=== PATIENT | male | born 1950 | race Caucasian/White ===

== ENCOUNTER → 2018-06-25 07:34 | Outpatient (CLI) | payer MEDICARE, SELFPAY ==
--- NOTE | 2018-06-25 07:38 | DI.MRI.S_ITS ---
PROCEDURE: MR KNEE RT WO CON INDICATIONS: Strain of R knee TECHNIQUE: Noncontrast sagittal PD fast spin echo and T2 fast spin echo with fat saturation, sagittal 3-D FLASH with fat saturation; coronal T1 spin echo and PD fast spin echo with fat saturation, and axial PD fast spin echo with fat saturation through the knee. COMPARISON: None. FINDINGS: Image quality: Excellent. Menisci: There is a complex tear of the medial meniscus including a horizontally oriented longitudinal tear in the posterior horn involving the inferior articular surface with intrasubstance extension to the junction with the posterior meniscal root ligament. There is also extension into the body which demonstrates irregular tearing along the free edge and inferior articular surface. No associated parameniscal cyst. The lateral meniscus also demonstrates a horizontally oriented longitudinal tear involving the inferior articular surface within the posterior horn with extension into the body where there is involvement of the superior articular surface and free edge. There is also a component extending into the anterior horn involving the superior articular surface. Cruciate ligaments: The anterior and posterior cruciate ligaments appear intact. Medial structures: The medial collateral ligament appears intact. The semimembranosus tendon insertions and meniscocapsular junction appear intact. Visualized portions of the pes anserinus tendons appear intact without associated bursal fluid collections. Lateral structures: The lateral collateral ligament, long and short heads of the biceps femoris tendon appear intact. The popliteus tendon appears intact. Iliotibial band appears normal. Anterior structures: The quadriceps and patellar tendons appear intact. Patellar alignment is normal. No femoral trochlear dysplasia or ventral trochlear prominence. There is curvilinear scarring within the infrapatellar fat pad suggestive of an infrapatellar plica. Bones and cartilage: No bone marrow contusions or fractures. There is minimal osteophytosis. Mild cartilage thinning is present in the medial compartment with superficial chondral fraying. In the lateral compartment, there is mild superficial chondral irregularity. In the patellofemoral compartment, there is mild superficial chondral irregularity. Joint space: There is physiologic knee joint fluid. There is a moderate-sized septated Mata's cyst. IMPRESSION: 1. Tearing of the medial and lateral menisci redemonstrated, slightly progressed compared to the prior study. There is interval resolution of the medial parameniscal cyst seen on the prior study. 2. Mild cartilage degeneration. 3. Moderate sized septated Mata cyst. 4. Scarring within the infrapatellar fat pad suggestive of an infrapatellar plica. Dictated by: Royal Kumar M.D. on 06/25/2018 at 14:00 Approved by: Royal Kumar M.D. on 06/25/2018 at 14:11
== END ==
PROVIDERS: Family Provider Family Medicine; PCP Family Medicine; Visit Provider Family Medicine
DX: S83.231A Complex tear of medial meniscus, current injury, right knee, initial encounter (principal); S83.281A Other tear of lateral meniscus, current injury, right knee, initial encounter; M71.21 Synovial cyst of popliteal space [Baker], right knee; L30.9 Dermatitis, unspecified
CPT/HCPCS: 73721

== ENCOUNTER → 2019-02-15 08:47 | Outpatient (CLI) | payer MEDICARE, SELFPAY ==
[2019-02-15 09:10] LABS: Add Manual Diff / Slide Review NO; Basophils Absolute Auto 0 /uL (0-100); Basophils Percent Auto 0.7 % (0-2); Eosinophils Absolute Auto 100 /uL (0-450); Eosinophils Percent Auto 1.5 % (2-4); Hematocrit 43.8 % (41-53); Hemoglobin 15.3 g/dL (13.5-17.5); Lymphocytes Absolute Auto 1500 /uL (1100-4500); Lymphocytes Percent Auto 28.1 % (25-40); Mean Corpuscular HGB Conc 34.8 % (30-36); Mean Corpuscular Hemoglobin 34.2 PG (26-34); Mean Corpuscular Volume 98.1 fL (80-100); Monocytes Absolute Auto 400 /uL (0-900); Monocytes Percent Auto 7.2 % (3-14); Neutrophils Absolute Auto 3300 /uL (1500-7000); Neutrophils Percent Auto 62.5 % (50-75); Platelet Count 153 X10^3/uL (150-400); Red Blood Cell Count 4.47 X10^6/uL (4.5-5.9); Red Cell Distribution Width 13.1 % (11.6-14.8); White Blood Cell Count 5.3 X10^3/uL (4.5-11.0)
[2019-02-15 09:29] LABS: Alanine Aminotransferase 44 IU/L (21-72); Albumin 4.6 g/dL (3.5-5.0); Albumin Globulin Ratio 1.4 (1.0-2.8); Alkaline Phosphatase 80 U/L (38-126); Aspartate Aminotransferase 58 IU/L (17-59); BUN Creatinine Ratio 23.3 (6-22); Bilirubin Total 0.8 mg/dL (0.2-1.3); Blood Urea Nitrogen 14 mg/dL (9-20); Calcium 9.5 mg/dL (8.4-10.2); Carbon Dioxide 25 mmol/L (22-32); Chloride 106 mmol/L (98-107); Cholesterol 182 mg/dL (140-199); Estimated Glomerular Filt Rate > 60.0 mL/min (>60); Globulin 3.4 g/dL (1.7-4.1); Glucose 135 mg/dL (80-110); HDL Cholesterol 36 mg/dL (40-60); HEMOLYSIS < 15 (0-50); LDL Cholesterol Calculated 109 mg/dL (<100); Phenytoin / Dilantin 6.9 ug/mL (10-20); Potassium 4.3 mmol/L (3.4-5.1); Sodium 144 mmol/L (137-145); Triglycerides 186 mg/dL (35-150)
[2019-02-15 09:39] LABS: Creatinine Urine Random 116.1 mg/dL
[2019-02-15 09:52] LABS: Microalbumi Creatinin Ratio Ur 27.5 ug/mg CR (<30); Microalbumin Urine Random 3.2 mg/dL (0-1.6)
[2019-02-15 09:57] LABS: Prostate Specific Antigen Scrn 0.228 ng/mL (0.1-4.0)
== END ==
PROVIDERS: PCP Family Medicine; Visit Provider Family Medicine
DX: E78.5 Hyperlipidemia, unspecified (principal); R56.9 Unspecified convulsions; Z51.81 Encounter for therapeutic drug level monitoring; Z79.899 Other long term (current) drug therapy; Z13.1 Encounter for screening for diabetes mellitus; Z12.5 Encounter for screening for malignant neoplasm of prostate
CPT/HCPCS: 36415; 80053; 80061; 80185; 82043; 82570; 84443; 85025; G0103

== ENCOUNTER → 2019-04-19 08:16 | Outpatient (CLI) | payer MEDICARE, SELFPAY ==
[2019-04-19 09:01] LABS: Hemoglobin A1C% w Est Avg Glu 5.8 % (4.0-6.0)
[2019-04-19 09:25] LABS: Glucose 136 mg/dL (80-110)
== END ==
PROVIDERS: PCP Family Medicine; Visit Provider Family Medicine
DX: E11.9 Type 2 diabetes mellitus without complications (principal)
CPT/HCPCS: 36415; 82947; 83036

== ENCOUNTER → 2020-06-01 08:42 | Outpatient (CLI) | payer MEDICARE, SELFPAY ==
[2020-06-01 10:07] LABS: Alanine Aminotransferase 51 IU/L (<50); Albumin 4.6 g/dL (3.5-5.0); Albumin Globulin Ratio 1.3 (1.0-2.8); Alkaline Phosphatase 77 U/L (38-126); Aspartate Aminotransferase 60 IU/L (17-59); BUN Creatinine Ratio 32.7 (6-22); Bilirubin Total 0.7 mg/dL (0.2-1.3); Blood Urea Nitrogen 18 mg/dL (9-20); Calcium 9.8 mg/dL (8.4-10.2); Carbon Dioxide 26 mmol/L (22-32); Chloride 108 mmol/L (98-107); Cholesterol 193 mg/dL (140-199); Estimated Glomerular Filt Rate > 60.0 mL/min (>60); Globulin 3.6 g/dL (1.7-4.1); Glucose 130 mg/dL (80-110); HDL Cholesterol 37 mg/dL (40-60); HEMOLYSIS < 15 (0-50); LDL Cholesterol Calculated 110 mg/dL (<100); Phenytoin / Dilantin 17.5 ug/mL (10-20); Potassium 4.4 mmol/L (3.4-5.1); Sodium 142 mmol/L (137-145); Total Protein 8.2 g/dL (6.3-8.2); Triglycerides 232 mg/dL (35-150)
[2020-06-01 10:30] LABS: Prostate Specific Antigen Scrn 0.188 ng/mL (0.1-4.0)
[2020-06-01 10:32] LABS: Hemoglobin A1C% w Est Avg Glu 6.3 % (4.0-6.0)
== END ==
PROVIDERS: PCP Family Medicine; Referring Provider Family Medicine; Visit Provider Family Medicine
DX: R56.9 Unspecified convulsions (principal); E11.9 Type 2 diabetes mellitus without complications; Z12.5 Encounter for screening for malignant neoplasm of prostate; Z13.220 Encounter for screening for lipoid disorders; Z12.11 Encounter for screening for malignant neoplasm of colon
CPT/HCPCS: 80053; 80061; 80185; 83036; G0103

== ENCOUNTER → 2020-10-01 08:09 | Outpatient (CLI) | payer MEDICARE, SELFPAY ==
[2020-10-01 09:10] LABS: Alanine Aminotransferase 38 IU/L (<50); Albumin 4.3 g/dL (3.5-5.0); Albumin Globulin Ratio 1.3 (1.0-2.8); Alkaline Phosphatase 86 U/L (38-126); Aspartate Aminotransferase 46 IU/L (17-59); BUN Creatinine Ratio 28.3 (6-22); Bilirubin Total 0.7 mg/dL (0.2-1.3); Blood Urea Nitrogen 17 mg/dL (9-20); Calcium 9.8 mg/dL (8.4-10.2); Carbon Dioxide 28 mmol/L (22-32); Chloride 103 mmol/L (98-107); Estimated Glomerular Filt Rate > 60.0 mL/min (>60); Globulin 3.3 g/dL (1.7-4.1); Glucose 113 mg/dL (80-110); HEMOLYSIS < 15 (0-50); Potassium 4.3 mmol/L (3.4-5.1); Sodium 141 mmol/L (137-145); Total Protein 7.6 g/dL (6.3-8.2)
== END ==
PROVIDERS: PCP Family Medicine; Referring Provider Family Medicine; Visit Provider Family Medicine
DX: E11.9 Type 2 diabetes mellitus without complications (principal)
CPT/HCPCS: 36415; 80053; 83036

== ENCOUNTER → 2020-11-09 09:24 | Outpatient (CLI) | payer MEDICARE, SELFPAY ==
[2020-11-09 10:40] LABS: COVID19 -Nasal RAPID Negative (Negative)
== END ==
PROVIDERS: PCP Family Medicine; Visit Provider Surgery
DX: Z20.822 Contact with and (suspected) exposure to COVID-19 (principal)
CPT/HCPCS: 87635; C9803

== ENCOUNTER 2020-11-10 07:52 | Day surgery (SDC) | payer MEDICARE, SELFPAY ==
--- NOTE | 2020-11-10 | PATH_ITS ---
[facility] Accession Number: [id number] . 01 Material submitted: . PART A: colon - ASCENDING COLON POLYP PART B: rectum - RECTAL POLYP . 01 Clinical history: . SCREENING COLONOSCOPY . 02 Diagnosis: A. Ascending Colon, Polyp, Biopsy: Tubular adenoma. . B. Rectum, Polyp, Biopsy: Hyperplastic polyp. MRV 11/12/2020 1455 Local . 02 Electronically signed: . Ellie Dunn MD, Pathologist NPI- [id number] . 01 Gross description: . Part A: ASCENDING COLON POLYP: Received in formalin is 1 fragment(s) of guevara, soft tissue measuring 0.3 x 0.3 x 0.3 cm submitted entirely in 1 cassette(s) Part B: RECTAL POLYP: Received in formalin is 1 fragment(s) of guevara, soft tissue measuring 0.3 x 0.3 x 0.3 cm submitted entirely in 1 cassette(s) /JENN 11/11/2020 0524 Local . 02 Pathologist provided ICD-10: D12.2 . 02 CPT . 835431, [id number] Performed at: 01 [facility] Cyt[facility] [address], [place] [id number] MD Royal Shepherd MD Phone: [phone] [facility]formed at: 02 [facility] [address] [place], [place] [id number] MD Ellie Dunn MD Phone: [phone]
[2020-11-10 08:29] VITALS: BP 123/75; PULSE 60; RESP 14; TEMP 36.3; O2SAT 98; BMI 24.4
[2020-11-10] MEDS: LACTATED RINGERS 1,000 ML 100 ML IV (08:36)
--- NOTE | 2020-11-10 08:46 | PM.HP.1 ---
History of Present Illness History of Present Illness Date Patient Seen: 11/10/20 Time Patient Seen: 08:46 Chief complaint: SCREENING COLONOSCOPY Narrative: colon cancer screening this is likely his second scope. Doesn't recall having polyps. No symptoms now and no family history for colon cancer Patient History Medical History Family history of colon cancer History of right shoulder fracture Hx of fracture of leg Hyperlipemia Hypertriglyceridemia Osteoarthritis Rosacea Seizures Sleep apnea Wart (~02/2015) Well adult exam Surgical History Hx of colonoscopy with polypectomy (10/2010) Status post appendectomy Status post knee surgery Status post laparoscopic cholecystectomy Family & Social History Family History Father High cholesterol Mother Diabetes mellitus Sister Diabetes mellitus Colon cancer Social History: household members family Tobacco & Substance use: Smoking Status Never smoker alcohol intake never Substance Use Type does not use Meds Home Medications and Allergies Home Medications Medication Instructions Recorded Confirmed Type cetirizine 10 mg capsule 10 mg PO DAILY #30 cap 09/05/18 11/10/20 Rx fluticasone propionate 50 1 spray NASAL BID #18.2 gram 09/05/18 11/10/20 Rx mcg/actuation nasal spray,suspension metronidazole 1 % topical gel with 1 applictn TOP BID #55 gram 01/01/20 11/10/20 Rx pump triamcinolone acetonide 0.1 % 1 applictn TOPICAL Q HS PRN #30 01/01/20 11/10/20 Rx topical cream gram phenytoin sodium extended 100 mg See Rx Instructions .ROUTE 09/30/20 11/10/20 Rx capsule .COMPLEX #450 cap diclofenac sodium 3 % topical gel 1 applic TOPICAL BID #100 g 10/12/20 11/10/20 Rx Allergies Allergy/AdvReac Type Severity Reaction Status Date / Time povidone-iodine Allergy Unknown SWELLING/RE Verified 11/10/20 08:16 [POVIDONE-IODINE] DNESS Exam Vital Signs (past 8 hours): - 11/10/20 08:29 Temperature 97.3 F L Pulse Rate 60 Respiratory Rate 14 Blood Pressure 123/75 Pulse Oximetry 98 Oxygen Delivery Method Room Air Const General: cooperative and healthy appearing HENMT Head: normal to inspection Eyes Sclera: sclerae normal Neck Neck: trachea midline Chest Chest: normal inspection of the chest Resp Effort & Inspection: normal respiratory effort and able to speak in complete sentences Auscultation: clear to auscultation bilaterally Cardio Rate: regular rate Rhythm: regular rhythm GI Inspection: normal to inspection Palpation: soft Skin General: no rashes or lesions noted Neuro General: patient alert, patient awake and patient oriented x3 Extrem General: normal to inspection and full ROM Psych Appearance: grossly normal Thought Content: normal Judgment: judgment good Assessment & Plan Assessment & Plan narrative: colon cancer screening with colonoscopy using moderated sedation COVID-19 COVID-19 status: Negative Time Spent With Patient Time with patient: less than 15 minutes
[2020-11-10] MEDS: MIDAZOLAM 5 MG/5 ML VIAL IV (09:07)
[2020-11-10] MEDS: fentaNYL 250 MCG/5 ML INJ IV (09:08)
--- NOTE | 2020-11-10 09:21 | PM.OP.ENDO ---
Operative Date/Time/Diagnoses Date of procedure: 11/10/20 Time of procedure: 09:01 Pre-op diagnosis: screening colonoscopy Post-op diagnosis: same Procedure & Clinicians Study performed: colonoscopy with cold forcep polypectomy Same procedure as scheduled: Yes Indications: colon cancer screening Surgeon: Deja Klein Procedure Notes SCOAP/Timeout: done Procedure in detail: Preop diagnosis: Family history of colon cancer Postop diagnosis: Same Operative procedure: Colonoscopy with cold forceps polypectomy x2 Anesthetic: Moderate sedation with 125 mcg of fentanyl 6 mg of Versed. Of note, we had IV infiltration on the 1st 100 mcg of fentanyl and 2 of Versed. Surgeon: Yolanda Klein MD Findings: A short segment of sigmoid colon was scant large diverticuli. 3 mm polyps located in the ascending colon and the rectum both taken with cold forceps. Bowel prep excellent Procedure: Patient placed in lateral position. Rectal exam is performed showing normal tone no masses. Colonoscope inserted into the rectum and advanced to the ileocecal valve with minimal difficulty. Insufflation and extraction of the scope and the above findings. Retroflex was included in the rectum. Impression: Should be on a 5 year recall regardless of the pathology. Sister revealed on the follow-up phone call that he has another sibling (sister) who had colon cancer. Scope withdrawal time: 7 Sedation minutes: 19 Findings: diverticulosis and polyp Complications: none Impression: acsending 3mm polyp and rectal polyp 3mm. Both taken with cold forcep. scant but large diverticula in short segment of sigmoid colon. She reports she had polyps and that a sibling had colon cancer. Post-procedure Recommendations: Colonscopy in 5 years Plan for aftercare: home Follow up: as needed Disposition: PACU
[2020-11-10 09:27] VITALS: BP 102/56; PULSE 64; RESP 19; TEMP 36.5; O2SAT 93
[2020-11-10 09:32] VITALS: BP 94/58; PULSE 63; RESP 19; O2SAT 93
[2020-11-10 09:36] VITALS: BP 106/63; PULSE 63; RESP 18; TEMP 36.4; O2SAT 93
[2020-11-10 09:42] VITALS: BP 94/59; PULSE 61; RESP 19; TEMP 36.5; O2SAT 94
[2020-11-10 10:13] VITALS: BP 104/68; PULSE 57; RESP 14; TEMP 36.3; O2SAT 95
--- NOTE | 2020-11-10 10:18 | SUR.PHASEII ---
A&O, has not appeared to be drowsy, declined more fluids, anxious to go home.
== END 2020-11-10 10:21 | disposition home or self-care (01) ==
PROVIDERS: PCP Family Medicine; Referring Provider Surgery; Visit Provider Surgery
PROC: 0DJD8ZZ Inspection of Lower Intestinal Tract, Via Natural or Artificial Opening Endoscopic (ICD-10-PCS; CPT 45378; principal; 2020-11-10 09:15)
DX: Z12.11 Encounter for screening for malignant neoplasm of colon (principal); Z80.0 Family history of malignant neoplasm of digestive organs; K57.30 Diverticulosis of large intestine without perforation or abscess without bleeding; D12.2 Benign neoplasm of ascending colon; K62.1 Rectal polyp
CPT/HCPCS: 45380; 99152; J2250; J3010

== ENCOUNTER → 2021-04-23 14:47 | Outpatient (CLI) | payer MEDICARE, SELFPAY ==
[2021-04-23 15:44] LABS: Alanine Aminotransferase 47 IU/L (<50); Albumin 4.9 g/dL (3.5-5.0); Albumin Globulin Ratio 1.3 (1.0-2.8); Alkaline Phosphatase 75 U/L (38-126); Aspartate Aminotransferase 52 IU/L (17-59); BUN Creatinine Ratio 21.7 (6-22); Bilirubin Total 0.8 mg/dL (0.2-1.3); Blood Urea Nitrogen 15 mg/dL (9-20); Calcium 9.9 mg/dL (8.4-10.2); Carbon Dioxide 28 mmol/L (22-32); Chloride 104 mmol/L (98-107); Estimated Glomerular Filt Rate > 60.0 mL/min (>60); Globulin 3.7 g/dL (1.7-4.1); Glucose 99 mg/dL (80-110); HEMOLYSIS < 15 (0-50); Phenytoin / Dilantin 14.3 ug/mL (10-20); Potassium 4.3 mmol/L (3.4-5.1); Sodium 143 mmol/L (137-145); Total Protein 8.6 g/dL (6.3-8.2)
== END ==
PROVIDERS: PCP Family Medicine; Referring Provider Family Medicine; Visit Provider Family Medicine
DX: R56.9 Unspecified convulsions (principal); E11.9 Type 2 diabetes mellitus without complications; E78.1 Pure hyperglyceridemia
CPT/HCPCS: 36415; 80053; 80185

== ENCOUNTER → 2021-08-31 08:16 | Outpatient (CLI) | payer MEDICARE, SELFPAY | PROVIDERS: PCP Family Medicine; Referring Provider Nurse Practitioner Family; Visit Provider Family Medicine | DX: G60.9 Hereditary and idiopathic neuropathy, unspecified (principal); L97.522 Non-pressure chronic ulcer of other part of left foot with fat layer exposed; L84 Corns and callosities; M21.532 Acquired clawfoot, left foot | CPT/HCPCS: 11042; 93922; 99204; 99213 ==

== ENCOUNTER → 2021-09-07 08:45 | Outpatient (CLI) | payer MEDICARE, SELFPAY | PROVIDERS: PCP Family Medicine; Referring Provider Family Medicine; Visit Provider Family Medicine | DX: G60.9 Hereditary and idiopathic neuropathy, unspecified (principal); M20.62 Acquired deformities of toe(s), unspecified, left foot; Z87.2 Personal history of diseases of the skin and subcutaneous tissue | CPT/HCPCS: 99212 ==

== ENCOUNTER → 2021-10-15 08:54 | Outpatient (CLI) | payer MEDICARE, SELFPAY ==
[2021-10-15 09:13] LABS: Add Manual Diff / Slide Review NO; Basophils Absolute Auto 100 /uL (0-100); Eosinophils Absolute Auto 100 /uL (0-450); Hemoglobin 15.4 g/dL (13.5-17.5); Lymphocytes Absolute Auto 1200 /uL (1100-4500); Lymphocytes Percent Auto 22.1 % (25-40); Mean Corpuscular HGB Conc 35.7 % (30-36); Mean Corpuscular Hemoglobin 35.1 PG (26-34); Mean Corpuscular Volume 98.2 fL (80-100); Monocytes Absolute Auto 400 /uL (0-900); Monocytes Percent Auto 7.5 % (3-14); Neutrophils Absolute Auto 3900 /uL (1500-7000); Neutrophils Percent Auto 68.4 % (50-75); Platelet Count 170 X10^3/uL (150-400); Red Blood Cell Count 4.38 X10^6/uL (4.5-5.9); Red Cell Distribution Width 12.8 % (11.6-14.8); White Blood Cell Count 5.6 X10^3/uL (4.5-11.0)
[2021-10-15 09:20] LABS: Hemoglobin A1C% w Est Avg Glu 6.2 % (4.0-6.0)
[2021-10-15 09:32] LABS: Alanine Aminotransferase 61 IU/L (<50); Albumin 4.7 g/dL (3.5-5.0); Albumin Globulin Ratio 1.3 (1.0-2.8); Alkaline Phosphatase 93 U/L (38-126); Aspartate Aminotransferase 68 IU/L (17-59); Bilirubin Total 0.8 mg/dL (0.2-1.3); Blood Urea Nitrogen 13 mg/dL (9-20); Carbon Dioxide 27 mmol/L (22-32); Chloride 106 mmol/L (98-107); Cholesterol 185 mg/dL (140-199); Estimated Glomerular Filt Rate > 60 mL/min (>60); Globulin 3.7 g/dL (1.7-4.1); Glucose 149 mg/dL (80-110); HDL Cholesterol 39 mg/dL (40-60); HEMOLYSIS < 15 (0-50); LDL Cholesterol Calculated 113 mg/dL (<100); Phenytoin / Dilantin 24.8 ug/mL (10-20); Potassium 4.4 mmol/L (3.4-5.1); Sodium 141 mmol/L (137-145); Total Protein 8.4 g/dL (6.3-8.2); Triglycerides 167 mg/dL (35-150)
[2021-10-15 09:54] LABS: Prostate Specific Antigen Scrn 0.251 ng/mL (0.1-4.0)
[2021-10-15 09:55] LABS: TSH w/ Reflex to FT4 3.28 uIU/mL (0.47-4.68)
== END ==
PROVIDERS: PCP Family Medicine; Referring Provider Family Medicine; Visit Provider Family Medicine
DX: E11.9 Type 2 diabetes mellitus without complications (principal); E78.1 Pure hyperglyceridemia; Z12.5 Encounter for screening for malignant neoplasm of prostate; R56.9 Unspecified convulsions
CPT/HCPCS: 36415; 80053; 80061; 80185; 83036; 84443; 85025; G0103

== ENCOUNTER → 2022-05-06 08:27 | Outpatient (CLI) | payer MEDICARE, SELFPAY ==
[2022-05-06 09:31] LABS: Hemoglobin A1C% w Est Avg Glu 6.4 % (4.0-6.0)
[2022-05-06 12:13] LABS: Alanine Aminotransferase 51 IU/L (<50); Albumin 4.6 g/dL (3.5-5.0); Albumin Globulin Ratio 1.4 (1.0-2.8); Alkaline Phosphatase 93 U/L (38-126); Aspartate Aminotransferase 54 IU/L (17-59); BUN Creatinine Ratio 16.7 (6-22); Bilirubin Total 0.9 mg/dL (0.2-1.3); Blood Urea Nitrogen 11 mg/dL (9-20); Calcium 8.9 mg/dL (8.4-10.2); Carbon Dioxide 27 mmol/L (22-32); Chloride 104 mmol/L (98-107); Cholesterol 201 mg/dL (140-199); Estimated Glomerular Filt Rate > 60 mL/min (>60); Globulin 3.3 g/dL (1.7-4.1); Glucose 145 mg/dL (80-110); HDL Cholesterol 42 mg/dL (40-60); HEMOLYSIS < 15 (0-50); LDL Cholesterol Calculated 126 mg/dL (<100); Potassium 4.2 mmol/L (3.4-5.1); Sodium 141 mmol/L (137-145); Total Protein 7.9 g/dL (6.3-8.2); Triglycerides 165 mg/dL (35-150)
[2022-05-06 16:29] LABS: Phenytoin / Dilantin 20.5 ug/mL (10-20)
== END ==
PROVIDERS: PCP Family Medicine; Referring Provider Family Medicine; Visit Provider Family Medicine
DX: E11.9 Type 2 diabetes mellitus without complications (principal); L84 Corns and callosities; R56.9 Unspecified convulsions; E78.1 Pure hyperglyceridemia
CPT/HCPCS: 36415; 80053; 80061; 80185; 83036

== ENCOUNTER → 2022-11-05 10:30 | Outpatient (CLI) | payer MEDICARE, SELFPAY ==
[2022-11-05 13:06] LABS: Alanine Aminotransferase 41 IU/L (<50); Albumin Globulin Ratio 1.3 (1.0-2.8); Alkaline Phosphatase 104 U/L (38-126); Aspartate Aminotransferase 55 IU/L (17-59); BUN Creatinine Ratio 19.3 (6-22); Bilirubin Total 0.9 mg/dL (0.2-1.3); Blood Urea Nitrogen 11 mg/dL (9-20); Calcium 8.6 mg/dL (8.4-10.2); Carbon Dioxide 30 mmol/L (22-32); Chloride 106 mmol/L (98-107); Cholesterol 164 mg/dL (140-199); Estimated Glomerular Filt Rate > 60 mL/min (>60); Glucose 112 mg/dL (80-110); HDL Cholesterol 40 mg/dL (40-60); HEMOLYSIS < 15 (0-50); LDL Cholesterol Calculated 97 mg/dL (<100); Phenytoin / Dilantin 27.9 ug/mL (10-20); Potassium 4.2 mmol/L (3.4-5.1); Sodium 142 mmol/L (137-145); Triglycerides 133 mg/dL (35-150)
[2022-11-06 07:45] LABS: x Labcorp Estim. Avg Glu (eAG) 128 mg/dL (.); x Labcorp Hemoglobin A1c 6.1 % (4.8-5.6)
== END ==
PROVIDERS: PCP Family Medicine; Referring Provider Family Medicine; Visit Provider Family Medicine
DX: E11.9 Type 2 diabetes mellitus without complications (principal); R56.9 Unspecified convulsions; E78.1 Pure hyperglyceridemia
CPT/HCPCS: 36415; 80053; 80061; 80185; 82043; 82570; 83036

== ENCOUNTER → 2023-01-19 17:12 | Outpatient (CLI) | payer MEDICARE, SELFPAY ==
--- NOTE | 2023-01-19 17:17 | DI.RAD.S_ITS ---
PROCEDURE: XR LUMBAR SPINE 2-3V INDICATIONS: eval back pain TECHNIQUE: 3 views of the lumbar spine were acquired. COMPARISON: None. FINDINGS: Bones: 5 [id number] vertebrae are present. Mild levocurvature of the lumbar spine. No vertebral body compression fractures. No suspicious bony lesions. There is multilevel facet arthropathy, worse at L4-5 and L5-S1. Mild degenerative endplate changes and spurring is present. Soft tissues: Overlying bowel gas pattern is normal. No suspicious soft tissue calcifications. Right upper quadrant surgical clips. IMPRESSION: Multilevel degenerative changes of the lumbar spine. No acute vertebral body compression deformities. Dictated by: Nitish Llanes M.D. on 01/20/2023 at 8:38 Approved by: Nitish Llanes M.D. on 01/20/2023 at 8:39
== END ==
PROVIDERS: PCP Family Medicine; Referring Provider Family Medicine; Visit Provider Family Medicine
DX: M47.816 Spondylosis without myelopathy or radiculopathy, lumbar region (principal); M47.817 Spondylosis without myelopathy or radiculopathy, lumbosacral region; M54.50 Low back pain, unspecified
CPT/HCPCS: 72100

== ENCOUNTER → 2023-06-09 16:29 | Outpatient (CLI) | payer MEDICARE, SELFPAY ==
[2023-06-09 17:52] LABS: Hemoglobin A1C% w Est Avg Glu 6.7 % (4.0-6.0)
[2023-06-09 18:35] LABS: Alanine Aminotransferase 46 IU/L (<50); Albumin 4.6 g/dL (3.5-5.0); Albumin Globulin Ratio 1.1 (1.0-2.8); Alkaline Phosphatase 85 U/L (38-126); Aspartate Aminotransferase 63 IU/L (17-59); BUN Creatinine Ratio 32.7 (6-22); Bilirubin Total 1.1 mg/dL (0.2-1.3); Blood Urea Nitrogen 18 mg/dL (9-20); Calcium 9.7 mg/dL (8.4-10.2); Carbon Dioxide 29 mmol/L (22-32); Chloride 103 mmol/L (98-107); Estimated Glomerular Filt Rate > 60 mL/min (>60); Globulin 4.2 g/dL (1.7-4.1); Glucose 192 mg/dL (80-110); HEMOLYSIS 46 (0-50); Phenytoin / Dilantin 22.5 ug/mL (10-20); Potassium 4.4 mmol/L (3.4-5.1); Sodium 139 mmol/L (137-145); Total Protein 8.8 g/dL (6.3-8.2)
== END ==
PROVIDERS: PCP Family Medicine; Referring Provider Family Medicine; Visit Provider Family Medicine
DX: E11.9 Type 2 diabetes mellitus without complications (principal); R56.9 Unspecified convulsions; E78.1 Pure hyperglyceridemia
CPT/HCPCS: 36415; 80053; 80185; 83036

== ENCOUNTER → 2023-12-06 08:47 | Outpatient (CLI) | payer MEDICARE, SELFPAY ==
[2023-12-06 10:35] LABS: Add Manual Diff / Slide Review NO; Basophils Absolute Auto 0 /uL (0-100); Basophils Percent Auto 0.4 % (0-2); Eosinophils Absolute Auto 100 /uL (0-450); Eosinophils Percent Auto 1.6 % (2-4); Hematocrit 46.1 % (41-53); Hemoglobin 15.7 g/dL (13.5-17.5); Lymphocytes Absolute Auto 1100 /uL (1100-4500); Mean Corpuscular HGB Conc 34.1 % (30-36); Mean Corpuscular Hemoglobin 34.4 PG (26-34); Mean Corpuscular Volume 100.9 fL (80-100); Monocytes Absolute Auto 400 /uL (0-900); Monocytes Percent Auto 7.7 % (3-14); Neutrophils Absolute Auto 3900 /uL (1500-7000); Neutrophils Percent Auto 70.3 % (50-75); Platelet Count 121 X10^3/uL (150-400); Red Blood Cell Count 4.57 X10^6/uL (4.5-5.9); Red Cell Distribution Width 13.1 % (11.6-14.8); White Blood Cell Count 5.5 X10^3/uL (4.5-11.0)
[2023-12-06 10:53] LABS: Alanine Aminotransferase 49 IU/L (<50); Albumin 4.4 g/dL (3.5-5.0); Albumin Globulin Ratio 1.3 (1.0-2.8); Alkaline Phosphatase 112 U/L (38-126); Aspartate Aminotransferase 63 IU/L (17-59); BUN Creatinine Ratio 19.7 (6-22); Bilirubin Total 1.2 mg/dL (0.2-1.3); Blood Urea Nitrogen 13 mg/dL (9-20); Calcium 8.6 mg/dL (8.4-10.2); Carbon Dioxide 29 mmol/L (22-32); Chloride 108 mmol/L (98-107); Cholesterol 195 mg/dL (140-199); Estimated Glomerular Filt Rate > 60 mL/min (>60); Globulin 3.5 g/dL (1.7-4.1); Glucose 175 mg/dL (80-110); HDL Cholesterol 36 mg/dL (40-60); LDL Cholesterol Calculated 112 mg/dL (<100); Potassium 4.1 mmol/L (3.4-5.1); Sodium 143 mmol/L (137-145); Total Protein 7.9 g/dL (6.3-8.2); Triglycerides 235 mg/dL (35-150)
[2023-12-06 14:29] LABS: HEMOLYSIS 30 (0-50); Prostate Specific Antigen Scrn 0.262 ng/mL (0.1-4.0)
[2023-12-07 18:32] LABS: Hemoglobin A1C% w Est Avg Glu 7.7 % (4.0-6.0)
== END ==
PROVIDERS: PCP Family Medicine; Referring Provider Family Medicine; Visit Provider Family Medicine
DX: Z00.00 Encounter for general adult medical examination without abnormal findings (principal); E11.9 Type 2 diabetes mellitus without complications; Z12.5 Encounter for screening for malignant neoplasm of prostate; E78.1 Pure hyperglyceridemia
CPT/HCPCS: 36415; 80053; 80061; 83036; 85025; G0103

== ENCOUNTER → 2024-05-01 08:34 | Outpatient (CLI) | payer MEDICARE, SELFPAY ==
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
== END ==
PROVIDERS: PCP Family Medicine; Referring Provider Family Medicine
DX: E11.65 Type 2 diabetes mellitus with hyperglycemia (principal); Z71.3 Dietary counseling and surveillance; Z83.3 Family history of diabetes mellitus; Z79.84 Long term (current) use of oral hypoglycemic drugs
CPT/HCPCS: 97802

== ENCOUNTER → 2024-05-24 08:58 | Outpatient (CLI) | payer MEDICARE, SELFPAY ==
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
== END ==
PROVIDERS: PCP Family Medicine; Referring Provider Family Medicine
DX: E11.9 Type 2 diabetes mellitus without complications (principal); Z83.3 Family history of diabetes mellitus; Z71.3 Dietary counseling and surveillance; Z79.84 Long term (current) use of oral hypoglycemic drugs
CPT/HCPCS: 97803

== ENCOUNTER → 2024-05-30 08:28 | Outpatient (CLI) | payer MEDICARE, SELFPAY ==
[2024-05-30 09:49] LABS: Alanine Aminotransferase 35 IU/L (<50); Albumin 4.4 g/dL (3.5-5.0); Albumin Globulin Ratio 1.4 (1.0-2.8); Alkaline Phosphatase 91 U/L (38-126); Aspartate Aminotransferase 44 IU/L (17-59); BUN Creatinine Ratio 20.6 (6-22); Bilirubin Total 1.1 mg/dL (0.2-1.3); Blood Urea Nitrogen 13 mg/dL (9-20); Calcium 9.2 mg/dL (8.4-10.2); Carbon Dioxide 24 mmol/L (22-32); Chloride 105 mmol/L (98-107); Estimated Glomerular Filt Rate > 60 mL/min (>60); Globulin 3.2 g/dL (1.7-4.1); Glucose 105 mg/dL (80-110); HEMOLYSIS < 15 (0-50); Phenytoin / Dilantin 11.2 ug/mL (10-20); Potassium 4.1 mmol/L (3.4-5.1); Sodium 139 mmol/L (137-145); Total Protein 7.6 g/dL (6.3-8.2)
== END ==
PROVIDERS: PCP Family Medicine; Referring Provider Family Medicine; Visit Provider Family Medicine
DX: E11.9 Type 2 diabetes mellitus without complications (principal); G62.9 Polyneuropathy, unspecified; E78.1 Pure hyperglyceridemia
CPT/HCPCS: 36415; 80053; 80185

== ENCOUNTER → 2024-06-04 09:16 | Outpatient (CLI) | payer MEDICARE, SELFPAY ==
--- NOTE | 2024-06-07 17:45 | DIAB.FU ---
Diabetes Education Class Series: Diabetes Physiology and Medications Name: Dc Kincaid Date: 06/04/23 Time: 9:35-11:40a Ish presents for initial 1 of 3 DSME classes. has questions about what foods have carbs and still enjoying foods he likes. Class topics covered: ? Diabetes pathophysiology ? Discuss different types of diabetes ? Review criteria for diagnosing diabetes ? Review HgA1c measurement and associated blood sugars ? Review blood sugar monitoring safety, technique, and goals ? Discuss ways to reduce complications associated with diabetes, includes microvascular and macrovascular complications ? Review diabetes medications types, action, and side effects ? Health care visits recommended for people with T2DM ? Immunization recommended for people with T2DM ? SMART goals review Goal Set: walk 2x per week Follow-up: Diabetes Lifestyle and Ongoing Support Class next week Susi Chappell RDN, [facility] Certified Diabetes Care and Link Trainer Teacher P: [phone] Thank you for this referral
== END ==
PROVIDERS: PCP Family Medicine; Referring Provider Physician Assistant
DX: E11.9 Type 2 diabetes mellitus without complications (principal); Z71.3 Dietary counseling and surveillance
CPT/HCPCS: G0109

== ENCOUNTER → 2024-06-11 09:32 | Outpatient (CLI) | payer MEDICARE, SELFPAY ==
--- NOTE | 2024-06-26 11:02 | DIAB.FU ---
Diabetes Education Class Series: Diabetes Physiology and Medications Name: Dc Kincaid Date: 06/11/2024 Time: a Dc presents for class 2 of 3. States he has been working on diet and exercise. States he has had improved recent labs with PCP visit. Class topics covered: ? Diabetes pathophysiology ? Discuss different types of diabetes ? Review criteria for diagnosing diabetes ? Review HgA1c measurement and associated blood sugars ? Review blood sugar monitoring safety, technique, and goals ? Discuss ways to reduce complications associated with diabetes, includes microvascular and macrovascular complications ? Review diabetes medications types, action, and side effects ? Health care visits recommended for people with T2DM ? Immunization recommended for people with T2DM ? SMART goals review Follow-up: Diabetes Lifestyle and Ongoing Support Class next week Susi Chappell RDN, [facility] Certified Diabetes Care and Last Turner P: [phone] Thank you for this referral
== END ==
PROVIDERS: PCP Family Medicine; Referring Provider Family Medicine
DX: E11.9 Type 2 diabetes mellitus without complications (principal); Z71.3 Dietary counseling and surveillance; Z79.84 Long term (current) use of oral hypoglycemic drugs
CPT/HCPCS: G0109

== ENCOUNTER → 2024-06-18 09:19 | Outpatient (CLI) | payer MEDICARE, SELFPAY ==
--- NOTE | 2024-06-26 11:22 | DIAB.FU ---
Addendum entered by Susi Chappell 06/26/24 11:26: Time: 945-46i Original Note: Diabetes Education Class Series: Diabetes Lifestyle Change and Ongoing Support Name: Dc Kincaid Date: 06/18/24 Time: [id number] Ish presents for class 3 of 3 today. Brought meter in for review of how to check BG Reports limited support from friends or family with Dm given he has not shared this news with many people. Class topics covered: ? Discuss the difference between physical activity and exercise ? Determine physical activity benefits and impact on diabetes ? Review physical activity recommendations and safety ? Discuss emergency preparedness ? Discuss diabetes and emotions (diabetes burnout/distress) ? Review and practice stress management techniques ? Review support groups and community resources ? Discuss the role of family support in diabetes care ? What is going well? Challenges of diabetes? Follow-up: 1:1 visit follow-up 3-4 weeks Susi Chappell RDN, [facility] Registered Dietitian, Certified Diabetes Care and String Laster [phone] [email or web address]
== END ==
PROVIDERS: PCP Family Medicine; Referring Provider Family Medicine
DX: E11.9 Type 2 diabetes mellitus without complications (principal); Z71.3 Dietary counseling and surveillance; Z79.84 Long term (current) use of oral hypoglycemic drugs
CPT/HCPCS: G0109

== ENCOUNTER → 2024-07-24 10:38 | Outpatient (CLI) | payer MEDICARE, SELFPAY ==
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
== END ==
PROVIDERS: PCP Family Medicine; Referring Provider Family Medicine
DX: E11.9 Type 2 diabetes mellitus without complications (principal); Z79.84 Long term (current) use of oral hypoglycemic drugs; Z71.3 Dietary counseling and surveillance
CPT/HCPCS: 97803

== ENCOUNTER → 2024-09-04 08:38 | Outpatient (CLI) | payer MEDICARE, SELFPAY ==
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
== END ==
LOC: DIET 08:39
PROVIDERS: PCP Family Medicine; Referring Provider Family Medicine
DX: E11.65 Type 2 diabetes mellitus with hyperglycemia (principal); Z71.3 Dietary counseling and surveillance; Z79.84 Long term (current) use of oral hypoglycemic drugs
CPT/HCPCS: G0108

== ENCOUNTER → 2024-11-15 07:35 | Outpatient (CLI) | payer MEDICARE, SELFPAY ==
[2024-11-15 08:19] LABS: Hemoglobin A1C% w Est Avg Glu 5.4 % (4.0-6.0)
[2024-11-15 08:25] LABS: Phenytoin / Dilantin 14.6 ug/mL (10-20)
== END ==
PROVIDERS: PCP Family Medicine; Referring Provider Family Medicine; Visit Provider Family Medicine
DX: G40.309 Generalized idiopathic epilepsy and epileptic syndromes, not intractable, without status epilepticus (principal); Z79.899 Other long term (current) drug therapy; Z51.81 Encounter for therapeutic drug level monitoring
CPT/HCPCS: 36415; 80185; 83036

== ENCOUNTER → 2024-11-19 08:40 | Outpatient (CLI) | payer MEDICARE, SELFPAY ==
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
== END ==
PROVIDERS: PCP Family Medicine
DX: E11.65 Type 2 diabetes mellitus with hyperglycemia (principal); Z71.3 Dietary counseling and surveillance; Z79.84 Long term (current) use of oral hypoglycemic drugs
CPT/HCPCS: 97803

== ENCOUNTER → 2025-03-25 09:30 | Outpatient (CLI) | payer MEDICARE, SELFPAY ==
[2025-03-25 10:23] LABS: Add Manual Diff / Slide Review NO; Hematocrit 38.7 % (41-53); Hemoglobin 13.5 g/dL (13.5-17.5); Lymphocytes Absolute Auto 700 /uL (1100-4500); Mean Corpuscular HGB Conc 34.8 % (30-36); Mean Corpuscular Hemoglobin 35.1 PG (26-34); Mean Corpuscular Volume 100.6 fL (80-100); Platelet Count 125 X10^3/uL (150-400)
[2025-03-25 10:32] LABS: Hemoglobin A1C% w Est Avg Glu 5.6 % (4.0-6.0)
[2025-03-25 10:44] LABS: Alanine Aminotransferase 37 IU/L (<50); Albumin 4.3 g/dL (3.5-5.0); Albumin Globulin Ratio 1.3 (1.0-2.8); Alkaline Phosphatase 94 U/L (38-126); Blood Urea Nitrogen 16 mg/dL (9-20); Calcium 8.8 mg/dL (8.4-10.2); Carbon Dioxide 25 mmol/L (22-32); Chloride 106 mmol/L (98-107); Estimated Glomerular Filt Rate > 60 mL/min (>60); Globulin 3.2 g/dL (1.7-4.1); Glucose 106 mg/dL (70-99); HDL Cholesterol 50 mg/dL (40-60); HEMOLYSIS < 15 (0-50); Phenytoin / Dilantin 17.5 ug/mL (10-20); Potassium 4.5 mmol/L (3.4-5.1); Sodium 139 mmol/L (137-145); Total Protein 7.5 g/dL (6.3-8.2)
[2025-03-25 10:45] LABS: Cholesterol 158 mg/dL (140-199); Triglycerides 117 mg/dL (35-150)
== END ==
PROVIDERS: PCP Family Medicine; Referring Provider Family Medicine; Visit Provider Family Medicine
DX: E11.65 Type 2 diabetes mellitus with hyperglycemia (principal); Z12.5 Encounter for screening for malignant neoplasm of prostate; G40.309 Generalized idiopathic epilepsy and epileptic syndromes, not intractable, without status epilepticus; F51.01 Primary insomnia
CPT/HCPCS: 36415; 80053; 80061; 80185; 83036; 85025; G0103